=== PATIENT | male | born 1990 | race Caucasian/White ===

== ENCOUNTER 2023-06-11 08:20 | Emergency (ER) | payer MEDICAID ==
[~2023-06-11] VITALS: Ht 190.5 cm; Wt 148.3 kg
[2023-06-11 08:41] VITALS: BP 119/77; PULSE 96; RESP 16; TEMP 98; O2SAT 98
[2023-06-11] MEDS ORDERED: ATA25 PO (09:19)
[2023-06-11] MEDS ORDERED: GUAN1TAB6 PO (09:19)
[2023-06-11] MEDS ORDERED: OMEP40EC23 PO (09:19)
[2023-06-11] MEDS ORDERED: QUET400T PO (09:19)
[2023-06-11] MEDS ORDERED: LURA120T PO (09:19)
[2023-06-11] MEDS ORDERED: RISP4TAB PO (09:19)
[2023-06-11] MEDS ORDERED: DIVA500T1 PO (09:19)
[2023-06-11] MEDS ORDERED: BENZ-315 PO (10:32)
[2023-06-12] MEDS ORDERED: CEPH-588 PO (12:21)
[2023-06-12] MEDS ORDERED: METF-713 PO (12:21)
[2023-06-12] MEDS ORDERED: LURA120T PO (12:37)
== END 2023-06-11 09:30 | disposition home or self-care (01) ==
LOC: MED 08:20
DX: F20.9 Schizophrenia, unspecified (principal); Z76.0 Encounter for issue of repeat prescription
CPT/HCPCS: 99281

== ENCOUNTER 2023-06-12 11:32 | Emergency (ER) | payer MEDICAID ==
[~2023-06-12] VITALS: Ht 190.5 cm; Wt 147.9 kg
[~2023-06-12 11:32] MED LIST: ATA25 PO; BENZ-315 PO; DIVA500T1 PO; GUAN1TAB6 PO; LURA120T PO; OMEP40EC23 PO; QUET400T PO; RISP4TAB PO
[2023-06-12 12:03] VITALS: BP 122/64; PULSE 98; RESP 16; TEMP 97.6; O2SAT 98
[2023-06-12] MEDS ORDERED: METF-713 PO (12:21)
[2023-06-12] MEDS ORDERED: CEPH-588 PO (12:21)
[2023-06-12] MEDS ORDERED: LURA120T PO (12:37)
[2023-06-12 12:39] VITALS: O2SAT 98
[2023-06-12 12:48] VITALS: BP 122/66; PULSE 78; RESP 16; TEMP 97.6; O2SAT 98
== END 2023-06-12 12:48 | disposition home or self-care (01) ==
LOC: MED 11:32
DX: L02.425 Furuncle of right lower limb (principal); L02.426 Furuncle of left lower limb; L02.221 Furuncle of abdominal wall; F20.9 Schizophrenia, unspecified; Z76.0 Encounter for issue of repeat prescription; Z79.899 Other long term (current) drug therapy
CPT/HCPCS: 99283

== ENCOUNTER 2023-09-04 12:24 | Emergency (ER) | payer MEDICAID ==
[~2023-09-04] VITALS: Ht 190.5 cm; Wt 156.5 kg
[2023-09-04 12:49] VITALS: BP 154/77; PULSE 124; RESP 20; TEMP 98.9; O2SAT 100
[2023-09-04] MEDS ORDERED: RISP4TAB PO ×2 (13:22→13:37)
[2023-09-04] MEDS ORDERED: GUAN1TAB6 PO ×2 (13:22→13:37)
[2023-09-04] MEDS ORDERED: DIVA500T1 PO ×2 (13:22→13:37)
[2023-09-04] MEDS ORDERED: BENZ-315 PO ×2 (13:22→13:37)
[2023-09-04] MEDS ORDERED: OMEP40EC23 PO ×2 (13:22→13:37)
[2023-09-04] MEDS ORDERED: QUET400T PO ×2 (13:22→13:37)
[2023-09-04] MEDS ORDERED: NAPR-54 PO ×2 (13:22→13:37)
[2023-09-04] MEDS ORDERED: ATA25 PO ×2 (13:22→13:37)
[2023-09-04] MEDS ORDERED: METF-713 PO ×2 (13:22→13:37)
[2023-09-04] MEDS ORDERED: LURA120T PO ×2 (13:22→13:37)
[2023-09-04 13:30] VITALS: BP 135/70; PULSE 94; RESP 16; TEMP 98.9; O2SAT 100
== END 2023-09-04 13:30 | disposition home or self-care (01) ==
LOC: MED 12:24
DX: E11.9 Type 2 diabetes mellitus without complications (principal); F20.9 Schizophrenia, unspecified; Z76.0 Encounter for issue of repeat prescription; Z79.899 Other long term (current) drug therapy; Z79.1 Long term (current) use of non-steroidal anti-inflammatories (NSAID)
CPT/HCPCS: 99281